=== PATIENT | female | born 1945 | race Caucasian/White ===

== ENCOUNTER → 2017-02-23 | Outpatient (CLI) | payer MEDICARE, OTHER ==
[~2017-02-23] MED LIST: ACETAMINOPHEN PO; AMARYL PO; AMLODIPINE BESYL5 MG PO; ASPIRIN81 MG PO; AUGMENTIN875 MG PO; BENZONATATE PO; BIOTIN2500 MCG PO; BIOTIN5 M1 PO; CALCIUM + D 6001 TA1 PO; CINNAMON PO; CINNAMON3.7 ML PO; CRANBERRY; CRESTOR PO; CRESTOR40 MG PO; FEMARA2.5 MG PO; FISH OIL 1,0001 CA2 PO; FISH OIL 1,001000 M1 PO; FUROSEMIDE40 MG PO; GLIMEPIRIDE1 M1 PO; HUMALOG MI100 UNIT/5 SQ; HUMALOG MIX 75/10 ML SUBQ; HUMALOG MIX 75/23 ML; HYDROCODONE-APA1 T41 PO; IMDUR-ER60 M3 PO; JANUVIA PO; JANUVIA50 MG PO; LASIX20 MG PO; LIPITOR PO; LISINOPRIL-HCTZ1 T14 PO; LISINOPRIL20 MG PO; LOSARTAN-HCTZ1 EACH PO; LOVAZA1 G PO; METFORMIN; METOPROLOL SUC100 MG PO; METOPROLOL SUC200 MG PO; METOPROLOL TAR100 MG PO; MUCINEX PO; MULTI-VITAMIN1 TAB PO; MULTIVITAMIN1 UDCAP PO; NEURONTIN100 MG PO; NITROSTAT0.4 MG SL; OMEGA 3-6-9 11200 M1 PO; ONGLYZA5 MG; ONGLYZA5 MG PO; OSTEO BI-FLEX1 EAC1 PO; OSTEO-BIFLEX PO; POTASSIUM CHLO10 ME1 PO; PRILOSEC20 MG DOB; RELAFEN500 MG PO; SALMON OIL 1,001 CAP PO; TYLENOL #3 PO; VITAMIN C500 M1 PO; VITAMIN C500 MG PO; VITAMIN D2400 UNIT PO; VITAMIN D400 UNI1 PO; VITAMIN D50000 UNIT PO; ZESTORETIC 20/11 TAB PO; ZYLOPRIM100 MG PO
--- NOTE | ~2017-02-23 | CR63 ---
[facility] A Service [facility] RADIOLOGY TEXT RESULTS PATIENT: DAVID AC LOCATION: [facility] : 41 UNIT #: [id number] AGE: [address]: Gali HansenP SEX: F ORDER DR: [id number] [place] [id number] O MR#: [id number] Acc #: [id number] NAME: DAVID AC : 1945 SEX: F STUDY DATE/TIME: 02/23/2017 12:30 UNIT: [facility] ROOM: STUDY DESCRIPTION: CR Chest 2 View Attending Physician: Gali Hansen A.P.R.N. Ordering Physician: Gali Hansen A.P.R.N. Primary Care Physician: Gali Hansen A.P.R.N. MEDICAL IMAGING REPORT This report is preliminary unless electronic signature is present. EXAM 2-view chest 02/23/2017. INDICATIONS Pedal edema, swelling of the feet for years. Hypertension, history of cancer and radiation therapy (not otherwise specified). Swelling and tingling in the extremities. Abdominal pain. Tobacco abuse since the age of 14. TECHNIQUE 2 views of the chest were performed. COMPARISON 06/09/2015 FINDINGS Cardiac silhouette is within normal limits. The aorta is mildly ectatic. Vascularity is normal. The lungs are clear. No effusion or dense consolidation. There is thoracic spondylosis, and the gallbladder is surgically absent. IMPRESSION Mildly ectatic aorta. Otherwise, negative 2-view chest. Degenerative change in the thoracic spine. Dictated by... Saroj Inman M.D. THIS IS AN ELECTRONICALLY VERIFIED REPORT Saroj Inman M.D. at 02/28/2017 9:50 AM BAM/clotilde [facility] A Service [facility] RADIOLOGY TEXT RESULTS PATIENT: DAVID AC LOCATION: [facility] : 41 UNIT #: [id number] AGE: [address]: Gali Hansen SEX: F ORDER DR: TD: 02/23/2017 18:20 JOB #: [id number] MEDICAL IMAGING REPORT Page 1 of 1
== END | disposition home or self-care (01) ==
LOC: SLAB 12:20
DX: R60.0 Localized edema (principal); I77.819 Aortic ectasia, unspecified site; M47.894 Other spondylosis, thoracic region
CPT/HCPCS: 71020

== ENCOUNTER → 2017-05-02 | Outpatient (CLI) | payer MEDICARE, OTHER ==
[2017-05-02 12:18] LABS: BASOPHIL# 0.1 X10e3 (0-0.3); EOSINOPHIL# 0.1 X10e3 (0-0.7); EOSINOPHIL% 1.6 % (0.0-7.0); HEMATOCRIT 44.3 % (35.0-45.0); HEMOGLOBIN 14.8 gm/dL (12.0-16.0); LYMPHOCYTE# 1.7 X10e3 (1.0-3.5); LYMPHOCYTE% 25.7 % (17.0-45.0); MEAN CELL VOLUME 91.5 FL (83-96); MEAN CORPUSCULAR HEMOGLOBIN 30.7 PG (28-34); MEAN CORPUSCULAR HGB CONC 33.5 g/dL (30-36); MEAN PLATELET VOLUME 9.2 FL (6.5-11.5); MONOCYTE# 0.6 X10e3 (0-1.0); MONOCYTE% 9.5 % (3.0-12.0); NEUTROPHIL# 4.1 X10e3 (1.5-7.1); NEUTROPHIL% 62.2 % (40-75); PLATELET COUNT 180 X10e3 (140-420); RED BLOOD COUNT 4.84 X10e (3.90-5.30); RED CELL DISTRIBUTION WIDTH 14.2 % (11.0-15.5); WHITE BLOOD COUNT 6.6 X10e3 (4.0-10.5)
[2017-05-02 12:20] LABS: DIFF IND NO
[2017-05-02 12:25] LABS: BUN/CREATININE RATIO 16.15; CALCIUM SERUM 8.7 mg/dL (8.4-10.2); CREATININE SERUM 1.3 mg/dL (0.6-1.4); GLOM FILT RATE Estimated 40.7 mL/min (>60); PHOSPHOROUS 3.2 mg/dL (2.5-4.6)
[2017-05-02 12:30] LABS: URINE APPEARANCE CLEAR; URINE BILIRUBIN NEG (NEG); URINE BLOOD NEG (NEG); URINE COLOR YELLOW; URINE GLUCOSE NEG (NORM); URINE KETONE NEG (NEG); URINE LEUKOCYTE ESTERASE NEG (NEG); URINE NITRATE NEG (NEG); URINE PROTEIN 2+ (NEG); URINE UROBILINOGEN 0.2 MG/DL (NORM)
[2017-05-02 12:37] LABS: MICRO INDICATED? YES
[2017-05-02 13:08] LABS: URINE BACTERIA NEG (NEG); URINE RBC 0-2 /[HPF] (0-2); URINE SQUAMOUS EPITHELIAL CELL OCCAS /[HPF]; URINE WBC 0-2 /[HPF] (0-5)
[2017-05-07 01:26] LABS: CALCIUM (PTHINTACT) 9.4 mg/dL (8.6-10.4)
== END | disposition home or self-care (01) ==
LOC: SLAB 11:47
PROVIDERS: Internal Medicine Nephrology
DX: N18.3 Chronic kidney disease, stage 3 (moderate) (principal); E55.9 Vitamin D deficiency, unspecified
CPT/HCPCS: 36415; 80048; 81003; 82306; 82310; 83970; 84100; 85025